=== PATIENT | female | born 1980 | race Caucasian/White ===

== ENCOUNTER → 2019-10-19 10:26 | Outpatient (CLI) | payer OTHER, SELFPAY ==
--- NOTE | 2019-10-19 | DI.CT.S_ITS ---
PROCEDURE: CT SINUS SCREEN WO CON INDICATIONS: Chronic maxillary sinusitis TECHNIQUE: Noncontrast 3.0 mm axial images acquired from the frontal sinuses to the mid-sella, with coronal and sagittal reformats. For radiation dose reduction, the following was used: automated exposure control, adjustment of mA and/or kV according to patient size. COMPARISON: None. FINDINGS: Image quality: Excellent. Sinuses: There is moderate left and mild right maxillary sinus mucosal thickening. Mild scattered areas of mucosal thickening are present within the ethmoid air cells as well as minimal to mild there is in the frontal sinus. Sphenoid sinuses demonstrate minimal mucosal thickening. Ostiomeatal Complexes: There is mucosal thickening and occlusion of the left ostiomeatal complex. No Cedrick cells. Miscellaneous: Visualized intra-orbital contents are normal. No sylvie bullosa or paradoxical turbinate curvature. Mild leftward nasal septal deviation. IMPRESSION: 1. Pansinus disease most notable in the left maxillary sinus. 2. 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 Dictated by: Ivett Martini M.D. on 10/19/2019 at 12:21 Approved by: Ivett Martini M.D. on 10/19/2019 at 12:24
== END ==
PROVIDERS: Visit Provider Family Medicine
DX: J32.4 Chronic pansinusitis (principal); J34.2 Deviated nasal septum
CPT/HCPCS: 70486

== ENCOUNTER → 2021-12-11 09:14 | Outpatient (CLI) | payer OTHER, SELFPAY ==
[2021-12-11 19:01] LABS: COVID19 - ORCAS (NP or Nasal) Negative (Negative)
== END ==
PROVIDERS: PCP Physician Assistant; Visit Provider Physician Assistant
DX: Z01.812 Encounter for preprocedural laboratory examination (principal); Z20.822 Contact with and (suspected) exposure to COVID-19
CPT/HCPCS: U0003

== ENCOUNTER → 2024-05-07 11:40 | Outpatient (CLI) | payer OTHER, SELFPAY ==
[2024-05-07 19:46] LABS: Add Manual Diff / Slide Review NO; Basophils Absolute Auto 0 /uL (0-100); Basophils Percent Auto 0.4 % (0-2); Eosinophils Absolute Auto 200 /uL (0-450); Eosinophils Percent Auto 3.2 % (2-4); Hematocrit 40.4 % (36-46); Hemoglobin 13.7 g/dL (12.0-16.0); Lymphocytes Absolute Auto 900 /uL (1100-4500); Lymphocytes Percent Auto 16.9 % (25-40); Mean Corpuscular Hemoglobin 30.8 PG (26-34); Mean Corpuscular Volume 90.6 fL (80-100); Monocytes Absolute Auto 400 /uL (0-900); Monocytes Percent Auto 8.5 % (3-14); Neutrophils Absolute Auto 3600 /uL (1500-7000); Platelet Count 274 X10^3/uL (150-400); Red Blood Cell Count 4.46 X10^6/uL (4.0-5.2); Red Cell Distribution Width 13.2 % (11.6-14.8)
[2024-05-07 19:55] LABS: Alanine Aminotransferase 21 IU/L (<35); Albumin 4.7 g/dL (3.5-5.0); Alkaline Phosphatase 46 U/L (38-126); Aspartate Aminotransferase 28 IU/L (14-36); BUN Creatinine Ratio 13.6 (6-22); Bilirubin Total 0.7 mg/dL (0.2-1.3); Blood Urea Nitrogen 9 mg/dL (7-17); C-Reactive Protein Quant < 0.5 mg/dL (<1.0); Calcium 9.9 mg/dL (8.4-10.2); Carbon Dioxide 26 mmol/L (22-32); Cholesterol 189 mg/dL (140-199); Estimated Glomerular Filt Rate > 60 mL/min (>60); Glucose 111 mg/dL (70-100); HDL Cholesterol 79 mg/dL (40-60); HEMOLYSIS < 15 (0-50)
[2024-05-07 20:00] LABS: Albumin Globulin Ratio 1.7 (1.0-2.8); Chloride 106 mmol/L (98-107); Globulin 2.7 g/dL (1.7-4.1); LDL Cholesterol Calculated 98 mg/dL (<100); Potassium 4.7 mmol/L (3.4-5.1); Rheumatoid Factor < 8.6 IU/mL (<12.0); Sodium 139 mmol/L (137-145); Total Protein 7.4 g/dL (6.3-8.2); Triglycerides 58 mg/dL (35-150); Uric Acid 2.8 mg/dL (2.5-6.2)
[2024-05-07 20:16] LABS: Erythrocyte Sedimentation Rate 4 MM/HR (0-20)
[2024-05-07 20:27] LABS: Ferritin 17 ng/mL (6-137)
[2024-05-12 18:36] LABS: ANA Screen, IFA Negative (.)
== END ==
PROVIDERS: PCP Family Medicine; Visit Provider Family Medicine
DX: B00.9 Herpesviral infection, unspecified (principal); R53.82 Chronic fatigue, unspecified; Z13.0 Encounter for screening for diseases of the blood and blood-forming organs and certain disorders involving the immune mechanism; Z13.29 Encounter for screening for other suspected endocrine disorder; Z13.1 Encounter for screening for diabetes mellitus; Z13.6 Encounter for screening for cardiovascular disorders; Z83.2 Family history of diseases of the blood and blood-forming organs and certain disorders involving the immune mechanism; M25.50 Pain in unspecified joint
CPT/HCPCS: 80053; 80061; 82728; 84443; 84550; 85025; 85651; 86038; 86140; 86430

== ENCOUNTER → 2025-01-01 15:17 | Outpatient (CLI) | payer OTHER, SELFPAY ==
--- NOTE | 2025-01-01 15:18 | DI.MG.S_ITS ---
MM screening mammo BI: 01/01/2025. BI-RADS: 1 CLINICAL: 44-year old female for bilateral screening mammogram. Tyrer-Cuzick lifetime risk of 11.0%. No personal or first-degree family history of breast cancer. PRIOR EXAMS No prior examinations available. MAMMOGRAPHY TECHNIQUE: 2D and 3D (tomosynthesis) digital mammographic views obtained, with additional images as needed for full coverage. Current study was also evaluated with a Computer Aided Detection (CAD) system. DENSITY C. The breasts are heterogeneously dense, which may obscure small masses. MAMMOGRAPHY FINDINGS Bilateral: No suspicious mass, asymmetry, microcalcification, or other abnormality seen. No significant change from comparison. IMPRESSION: * No evidence of malignancy. RECOMMENDATIONS Bilateral * Annual screening mammography. OVERALL ASSESSMENT CATEGORY BI-RADS-1: Negative. [employer] recommends annual screening mammography beginning at age 40 for women with average risk of breast cancer. ELECTRONICALLY SIGNED: Dorina Montano M.D. on 01/01/2025 at 04:52:25 PM PT Interpreting Station ID: [id number]
== END ==
PROVIDERS: PCP Family Medicine; Referring Provider Family Medicine; Visit Provider Family Medicine
DX: Z12.31 Encounter for screening mammogram for malignant neoplasm of breast (principal); R92.333 Mammographic heterogeneous density, bilateral breasts
CPT/HCPCS: 77063; 77067